=== PATIENT | female | born 1990 | race Asian ===

== ENCOUNTER 2020-01-29 13:22 | Inpatient (IN) ==
[2020-01-29] MEDS ORDERED: OXYTOCIN 30 UNITS/500 ML BAG IV PRN ×2 (14:30→19:53)
[2020-01-29 14:51] LABS: Hematocrit (blood only) 39.4 % (37-47); Hemoglobin 12.9 g/dL (12.0-16.0); Mean Corpuscular Hemoglobin 29.5 pg (25-34); Mean Platelet Volume 10.9 fL (7.4-10.4); Platelet Count 190 K/uL (130-400); RDW Coefficient of Variation 16.3 % (11.5-14.5); RDW Standard Deviation 53.8 fL (36.4-46.3); Red Blood Count 4.38 M/uL (4.2-5.4); White Blood Count 11.83 K/uL (4.8-10.8)
[2020-01-29 14:56] LABS: Mean Corpuscular Hgb Conc 32.7 g/dL (32-36)
--- NOTE | 2020-01-29 15:27 | History & Physical Report ---
Date of Service January 29, 2020 Assessment & Plan (1) Supervision of normal intrauterine in primigravida: 29 yo seen in the office after spontaneous rupture of membranes at home. Nitrazine test positive and fern testing positive, sent to L&D from office. 1) Spontaneous Rupture of Membranes at term - external heart rate monitoring - GBS negative - supportive care for cramping and contractions - spinal anesthesia per patient request (2) PROM (premature rupture of membranes): Patient was found to be ruptured in the office she will be admitted here I discussed the possibility of augmentation if she does not progress into labor by 6 to 8 hours at this time she would prefer to walk and ambulate and this seems reasonable she is group B strep negative negative so antibiotics are not indicated at this time and she is afebrile History of Present Illness Primary Care Provider: Diana Jimenez PA-C [id number] confirmed via LMP. Here for delivery after SROM at home and confirmation in office with +nitrazine test and ferning on microscopic exam of fluid. No complications with this . Has been attending OB appointments regularly. Currently taking supplement with iron and colace. Contractions: none. Fluid or Blood loss: SROM earlier today Movement: active Labs Blood type: O positive Antibody screen: negative H.9 Hct: 39.4 Wbc: 11.83 Plt:190 Rubella: immune VDRL/RPR:nonreactive Gonorrhea:negative Chlamydia:negative HIV: negative Hep Bs Ag: negative GBS:negative Glucose tolerance x2: negative Allergies Allergy/AdvReac Type Severity Reaction Status Date / Time No Known Drug Allergies Allergy Unknown Verified 01/29/20 17:54 Home Medications Home Medications Medication Instructions Recorded Confirmed Type breast pump #1 ea 01/22/20 01/29/20 Rx vit-iron fum-folic ac 1 tab PO DAILY 01/29/20 01/29/20 History [ Vitamin] Patient History Social History (Updated 06/22/19 @ 11:17 by Ashley Borja) Preferred Language: Turkish Communication Ability: Effective Manual Training Teacher Required: No Beliefs That Will Affect Care: None marital status: marital status details: Chelsie Mendosamadelyn (29) [phone] Current Living Situation: Spouse Current Living Situation Comment: lives with spouse current occupational status: unemployed Other Information That Helps Us Care for You: No Feels Safe at Home: Yes Safety Concerns: Feels Safe At This Time Smoking Status: Never smoker Hx Alcohol Use: No Hx Substance Use: No Review of Systems no fever, no chills and no fatigue no cough, no dyspnea and no wheezing no chest pain, no edema and no calf pain no abdominal pain, no nausea, no vomiting, no cramping, no constipation and no diarrhea/loose stools no dysuria and no difficulty urinating no back pain Physical Exam Constitutional: WD/WN, vitals as above well developed and well nourished Respiratory: normal respiratory effort, lungs clear to auscultation normal respiratory effort; no respiratory distress, no labored breathing and no cough Auscultation: no diminished lung sounds, no crackles, no rales, no rhonchi and no wheezes Cardiovascular: RRR, no murmur, no edema Rate/Rhythm: regular rate and regular rhythm Extremities: normal capillary refill; no calf tenderness, no pedal edema and no edema (2+ pitting edema BL to knees) Gastrointestinal (Abdomen): normal bowel sounds, soft, nontender, no hepatosplenomegaly Inspection/Auscultation: + abdomen distended and normal bowel sounds Percussion/Palpation: abdomen nontender and no guarding Genitourinary: Speculum/Bimanual Exam: + uterus enlarged OB Exam Abdomen: + fundal height Fundus: + firm and + relation to umbilicus (high above umbilicus); not tender Results & Data Vital Signs (Past 12 Hours) Vital Signs Temp Pulse Resp BP 01/29/20 13:37 37.0 C 20 01/29/20 13:34 91 H 109/71 Laboratory Results WBC 11.83 K/uL (4.8-10.8) H 01/29/20 14:44 RBC 4.38 M/uL (4.2-5.4) 01/29/20 14:44 Hgb 12.9 g/dL (12.0-16.0) 01/29/20 14:44 Hct 39.4 % (37-47) 01/29/20 14:44 MCV 90.0 fL (80-100) 01/29/20 14:44 MCH 29.5 pg (25-34) 01/29/20 14:44 MCHC 32.7 g/dL (32-36) 01/29/20 14:44 RDW Std Deviation 53.8 fL (36.4-46.3) H 01/29/20 14:44 RDW Coeff of Monica 16.3 % (11.5-14.5) H 01/29/20 14:44 Plt Count 190 K/uL (130-400) 01/29/20 14:44 MPV 10.9 fL (7.4-10.4) H 01/29/20 14:44 Monitoring External Monitor Walking around room; not currently on monitor. Tocodynamometer Contraction Frequency: no palpable contractions at this time. Resident Activity Tracking Resident Involvement: Resident Care Provided Care Provided: OB Delivery
--- NOTE | 2020-01-29 15:49 | History & Physical Report ---
Date of Service January 29, 2020 Assessment & Plan (1) PROM (premature rupture of membranes): Patient was found to be ruptured in the office she will be admitted here I discussed the possibility of augmentation if she does not progress into labor by 6 to 8 hours at this time she would prefer to walk and ambulate and this seems reasonable she is group B strep negative negative so antibiotics are not indicated at this time and she is afebrile Admission and Anticipated Discharge Date Admission Date: January 29, 2020 History of Present Illness Primary Care Provider: Diana Jimenez PA-C Patient admitted with spontaneous rupture of membranes she was assessed in the office and found to be ruptured. At this stage she is starting to have some contraction activity which is increased she is clearly not in labor yet her cervix was 1 cm in the office is uncomplicated she is group B strep negative this is her first baby Allergies Allergy/AdvReac Type Severity Reaction Status Date / Time No Known Drug Allergies Allergy Verified 01/29/20 12:38 Home Medications Home Medications Medication Instructions Recorded Confirmed Type PNV cmb#95-ferrous fumarate-FA 1 tab PO DAILY 11/04/18 01/29/20 History [ Multivitamins] calcium PO 07/13/19 01/29/20 History calcium carbonate PO 07/13/19 01/29/20 History doxylamine succinate PO 08/20/19 01/29/20 History pyridoxine (vitamin B6) PO 08/20/19 01/29/20 History docusate sodium PO 12/17/19 01/29/20 History ferrous sulfate PO 12/17/19 01/29/20 History breast pump #1 ea 01/22/20 01/29/20 Rx Patient History Medical History (Updated 01/29/20 @ 15:48 by Nadia Forbes MD, FACOG) Hx of migraines Hx of one miscarriage Hx of varicella Miscarriage within last 12 months Family History (Updated 06/22/19 @ 12:02 by Ashley Borja) Brother Heart defect Grandmother (Maternal) Diabetes Mother Hypertension Dyslipidemia Hepatitis Thyroid disease Aunt Breast cancer Other Family history non-contributory Social History (Updated 06/22/19 @ 11:17 by Ashley Borja) Preferred Language: Guatemalan Communication Ability: Effective Container Finisher Required: No Beliefs That Will Affect Care: None marital status: marital status details: Chelsie Krishnan (27) [phone] Current Living Situation: Spouse Current Living Situation Comment: lives with spouse current occupational status: unemployed Other Information That Helps Us Care for You: No Feels Safe at Home: Yes Safety Concerns: Feels Safe At This Time Smoking Status: Never smoker Hx Alcohol Use: No Hx Substance Use: No Physical Exam Constitutional: WD/WN, vitals as above Respiratory: normal respiratory effort, lungs clear to auscultation Cardiovascular: RRR, no murmur, no edema Gastrointestinal (Abdomen): normal bowel sounds, soft, nontender, no hepatosplenomegaly Results & Data ([facility]) Vital Signs (Past 12 Hours) Vital Signs Temp Pulse Resp BP 01/29/20 13:37 98.6 F 20 01/29/20 13:34 91 H 109/71 Coding Level of Care Code None Diagnoses PROM (premature rupture of membranes) O42.90
--- NOTE | 2020-01-29 18:12 | Labor Progress Brief Note ---
Date of Service January 29, 2020 Patient started to contract more on her own at this stage heart rate tracing is category 1 contractions about every 3 minutes apart and we feel more intense to her I discussed the role of Pitocin may still be needed at this time she prefers to walk the hallways and I think this is reasonable I will avoid cervical check at this time to reduce chance of infection she is group B strep negative we discussed the role of Pitocin if things do not progress later in the evening Assessment & Plan Admission and Anticipated Discharge Date Admission Date: January 29, 2020 Results & Data ([facility]) Vital Signs (Past 12 Hours) Vital Signs Temp Pulse Resp BP 01/29/20 16:31 76 97/54 L 01/29/20 13:37 98.6 F 20 01/29/20 13:34 91 H 109/71 Coding Level of Care Code None
--- NOTE | 2020-01-29 19:52 | Labor Progress Brief Note ---
Date of Service January 29, 2020 Patient's contractions have now backed away she is 9 hours from rupture of membranes she accepts Pitocin she did previously want to walk around at this stage she realizes her contractions are not strong enough estimated weight 7 pounds heart rate category 1 Assessment & Plan Admission and Anticipated Discharge Date Admission Date: January 29, 2020 Results & Data ([facility]) Vital Signs (Past 12 Hours) Vital Signs Temp Pulse Resp BP 01/29/20 19:20 98.4 F 78 18 110/66 01/29/20 16:31 98.1 F 76 20 97/54 L 01/29/20 13:37 98.6 F 20 01/29/20 13:34 91 H 109/71 Coding Level of Care Code None
[2020-01-29] MEDS: LACTATED RINGER'S 1,000 ML IV PRN ×2 (19:58→23:35)
[2020-01-29] MEDS ORDERED: fentaNYL citrate 100 MCG/2 ML VIAL ONE (23:21)
[2020-01-29] MEDS ORDERED: BUPIVACAINE 0.25% 30 ML VIAL ONE (23:21)
[2020-01-29] MEDS ORDERED: ePHEDrine sulfate 50 MG/ML AMP ONE (23:21)
[2020-01-29] MEDS ORDERED: fentaNYL 2MCG/ML ROPIV 1.25MG/ML 100 ML BAG EPI ONE (23:22)
--- NOTE | 2020-01-29 23:30 | Anesthesiology Consultation ---
Date of Service January 29, 2020 Assessment & Plan (1) Encounter for pre-operative examination: Chart Review Chart Review: Acceptable Risk for Surgery Consults Requested none ASA ASA2 Proposed Anesthesia Anesthesia Type: Labor Epidural Risk / Benefits Reviewed With: PT / POA / Parent / Guardian, Accepts Plan and Informed Consent Obtained History Height/Weight Height: 5 ft 3.78 in Weight: 65.771 kg Allergies Allergy/AdvReac Type Severity Reaction Status Date / Time No Known Drug Allergies Allergy Unknown Verified 01/29/20 17:54 Medications Home Medications Medication Instructions Recorded Confirmed Last Taken breast pump #1 ea 01/22/20 01/29/20 Unknown vit-iron fum-folic ac 1 tab PO DAILY 01/29/20 01/29/20 01/29/20 07:00 [ Vitamin] Active Medications Generic Name Dose Route Start Last Admin Trade Name Freq PRN Reason Stop Dose Admin Lactated Ringer's 1,000 mls @ 125 mls/hr 01/29/20 14:30 01/29/20 23:30 Lr IV 01/31/20 14:29 999 mls/hr .Q8H PRN Infusion L&D Protocol Protocol Oxytocin 30 units in 500 mls @ 5 mls/hr 01/29/20 19:53 01/29/20 23:00 Pitocin IV 01/31/20 19:52 0.3 units/hr .Q24H PRN 5 mls/hr Labor Induction/Augmentation Titration Protocol 0.3 UNITS/HR Past Medical History Medical History Hx of migraines Hx of one miscarriage Hx of varicella Miscarriage within last 12 months Exercise / Class Metabolic Activity II 4-5 Yardwork/Stairs/Walk up hill Past Family History Family History Brother Heart defect Grandmother (Maternal) Diabetes Mother Hypertension Dyslipidemia Hepatitis Thyroid disease Aunt Breast cancer Other Family history non-contributory Past Anesthesia History No Hx of Anesthesia Complications and No Family Hx of Anesthesia Complications History of PONV No Hx of PONV and No Hx of Motion Sickness Social History Smoking Status: Never smoker Hx Alcohol Use: No Hx Substance Use: No Physical Exam Vital Signs Last Vital Signs Temp 98.2 F 01/29/20 23:00 Pulse 73 01/29/20 23:24 Resp 20 01/29/20 23:00 BP 111/73 01/29/20 23:11 Pulse Ox 100 01/29/20 23:24 ENMT Mouth: no dentition abnormality Thyromental Distance: > or= 3.5 Finger Breadths Mallampati Class: II Neck normal visual inspection Respiratory normal respiratory effort Auscultation: lungs clear to auscultation bilaterally Cardiovascular Rate/Rhythm: regular rate and regular rhythm Testing Laboratory Results 01/29/20 14:44
[2020-01-29] MEDS ORDERED: DiphenhydrAMINE HCL 50 MG/ML VIAL IV PRN (23:53)
[2020-01-29] MEDS ORDERED: NALOXONE HCL 0.4 MG/1 ML VIAL/CARP IV PRN (23:53)
[2020-01-29] MEDS ORDERED: fentaNYL 2MCG/ML ROPIV 1.25MG/ML 100 ML BAG EPI PRN (23:53)
[2020-01-29] MEDS ORDERED: NALBUPHINE HCL INJ 10 MG/ML AMP IV PRN (23:53)
[2020-01-29] MEDS ORDERED: NALOXONE HCL 1 MG in SODIUM CHLORIDE 0.9% 1000ML 1,000 ML IV PRN (23:53)
[2020-01-29] MEDS ORDERED: ONDANSETRON INJ 2 MG/ML 2 ML VIAL IV PRN (23:53)
[2020-01-29] MEDS ORDERED: ePHEDrine sulfate 50 MG/ML AMP IV PRN (23:53)
[2020-01-30] MEDS ORDERED: Nursing to Pharmacy Communication SCH (05:45)
--- NOTE | 2020-01-30 06:09 | Labor Progress Brief Note ---
Date of Service January 30, 2020 Patient having some decelerations however she is now fully dilated +1 and will start pushing Assessment & Plan Admission and Anticipated Discharge Date Admission Date: January 29, 2020 Results & Data ([facility]) Vital Signs (Past 12 Hours) Vital Signs Temp Pulse Resp BP Pulse Ox 01/30/20 06:04 86 98 01/30/20 06:01 80 112/76 01/30/20 06:00 20 01/30/20 05:59 78 97 01/30/20 05:54 74 99 01/30/20 05:49 82 99 01/30/20 05:45 83 111/71 01/30/20 05:44 79 100 01/30/20 05:39 80 99 01/30/20 05:34 80 99 01/30/20 05:30 82 20 104/67 01/30/20 05:29 82 98 01/30/20 05:24 82 98 01/30/20 05:19 88 98 01/30/20 05:15 79 112/73 01/30/20 05:14 85 99 01/30/20 05:09 79 99 01/30/20 05:04 81 99 01/30/20 05:02 80 116/73 01/30/20 05:00 98.6 F 20 01/30/20 04:59 78 99 01/30/20 04:54 92 H 98 01/30/20 04:49 73 99 01/30/20 04:46 81 109/66 01/30/20 04:44 96 H 98 01/30/20 04:39 75 99 01/30/20 04:34 80 99 01/30/20 04:31 78 101/54 L 01/30/20 04:30 18 01/30/20 04:29 80 99 01/30/20 04:24 76 96 01/30/20 04:19 74 97 01/30/20 04:16 75 105/56 L 01/30/20 04:14 73 98 01/30/20 04:09 76 98 01/30/20 04:04 76 98 01/30/20 04:02 75 102/65 01/30/20 03:59 85 97 01/30/20 03:54 80 97 01/30/20 03:49 74 98 01/30/20 03:46 85 109/66 01/30/20 03:44 78 98 01/30/20 03:39 78 97 01/30/20 03:34 76 97 01/30/20 03:31 79 101/57 L 01/30/20 03:30 18 01/30/20 03:29 82 98 01/30/20 03:24 80 96 01/30/20 03:19 82 96 01/30/20 03:17 81 93/55 L 01/30/20 03:14 93 H 96 01/30/20 03:09 80 97 01/30/20 03:04 81 97 01/30/20 03:00 78 18 93/54 L 01/30/20 02:59 77 98 01/30/20 02:54 80 100 01/30/20 02:49 86 98 01/30/20 02:46 74 94/54 L 01/30/20 02:44 73 99 01/30/20 02:39 81 100 01/30/20 02:34 82 99 01/30/20 02:32 80 95/57 L 01/30/20 02:30 98.6 F 18 01/30/20 02:29 90 99 01/30/20 02:24 79 98 01/30/20 02:19 76 98 01/30/20 02:15 73 102/63 01/30/20 02:14 68 97 01/30/20 02:09 75 98 01/30/20 02:04 76 98 01/30/20 02:00 67 18 102/63 01/30/20 01:59 69 97 01/30/20 01:54 77 99 01/30/20 01:49 85 98 01/30/20 01:47 71 93/50 L 01/30/20 01:44 74 99 01/30/20 01:39 73 99 01/30/20 01:34 69 100 01/30/20 01:30 73 18 91/52 L 01/30/20 01:29 78 99 01/30/20 01:24 75 99 01/30/20 01:19 80 98 01/30/20 01:15 78 93/55 L 01/30/20 01:14 72 99 01/30/20 01:09 84 97 01/30/20 01:06 71 102/66 01/30/20 01:04 73 96 01/30/20 01:00 18 01/30/20 00:59 74 96 01/30/20 00:56 76 107/65 01/30/20 00:54 71 96 01/30/20 00:49 74 96 01/30/20 00:46 78 109/72 01/30/20 00:44 71 97 01/30/20 00:39 73 97 01/30/20 00:36 81 111/72 01/30/20 00:34 72 97 01/30/20 00:30 98.4 F 18 01/30/20 00:29 75 96 01/30/20 00:26 71 101/63 01/30/20 00:24 74 97 01/30/20 00:19 78 97 01/30/20 00:17 80 102/62 01/30/20 00:14 82 97 01/30/20 00:09 73 98 01/30/20 00:06 70 103/65 01/30/20 00:04 89 108/68 97 01/30/20 00:02 82 95/55 L 01/30/20 00:00 76 20 88/54 L 01/29/20 23:59 80 97 01/29/20 23:58 84 92/55 L 01/29/20 23:56 82 95/52 L 01/29/20 23:54 83 92/50 L 96 01/29/20 23:52 81 100/50 L 01/29/20 23:50 77 110/65 01/29/20 23:49 72 99 01/29/20 23:48 71 115/67 01/29/20 23:46 78 112/64 01/29/20 23:44 74 97 01/29/20 23:39 95 H 98 01/29/20 23:36 90 114/63 01/29/20 23:34 82 97 01/29/20 23:29 76 99 01/29/20 23:24 73 100 01/29/20 23:11 71 111/73 01/29/20 23:00 98.2 F 20 01/29/20 22:11 78 111/72 01/29/20 22:05 18 01/29/20 21:11 72 109/67 01/29/20 21:05 98.6 F 18 01/29/20 20:09 77 106/64 01/29/20 19:20 98.4 F 78 18 110/66 Coding Level of Care Code None
[2020-01-30] MEDS ORDERED: OXYTOCIN 30 UNITS/500 ML BAG IV PRN (07:09)
[2020-01-30] MEDS ORDERED: HYDROCORTISONE ACETATE 25 MG SUPP PR PRN (07:09)
[2020-01-30] MEDS ORDERED: BENZOCAINE 20% AER SPR 82.5 GM CAN EXT PRN (07:09)
[2020-01-30] MEDS ORDERED: SUPERCREAM 0.870% 15 GM JAR EXT PRN (07:09)
[2020-01-30] MEDS ORDERED: DIPHTHERIA/TETANUS/PERTUSSIS 0.5 ML SYR/VIAL IM ONE (07:09)
--- NOTE | 2020-01-30 07:11 | Delivery Summary ---
Vaginal Delivery Summary Date of Service January 30, 2020 Spontaneous vaginal delivery patient had an epidural pushed for a relatively short period of time in right occiput anterior position mouth and then nares were suctioned there was no nuchal cord gentle traction fluid was clear live vigorous female cord gases obtained cord blood obtained placenta removed with gentle traction IV Pitocin started 3-0 Vicryl used to repair the small second-degree tear bleeding improved sponge and instrument counts were correct estimated blood loss 250
[2020-01-30] MEDS ORDERED: LACTATED RINGER'S 1,000 ML IV SCH (07:15)
[2020-01-30 07:33] LABS: Base Excess Cord Venous Blood 1.2 mEq/L (-7.7-1.9); Cord Venous Blood HCO3 26 mmol/L (18.4-26.8); Cord Venous Blood PCO2 42 mmHg (30.4-57.2); Cord Venous Blood PO2 28 mmHg (14.1-43.3); Cord Venous Blood pH 7.41 (7.20-7.44)
[2020-01-30 07:34] LABS: Base Excess Cord Arterial Bld -0.1 mEq/L (-9-1.8); CO2 Cord Arterial Blood 54 mmHg (39.1-73.5); HCO3 Cord Arterial Blood 27 mmol/L (19.7-28.5); PO2 Cord Arterial Blood 18 mmHg (4.1-31.7); pH Cord Arterial Blood 7.32 (7.1-7.38)
[2020-01-30 07:38] LABS: Oxygen Sat Cord Arterial Blood < 60.0 % (<60)
[2020-01-30] MEDS ORDERED: NON-FORMULARY MEDICATION (Prenatal Vit-Iron Fum-Folic Ac [Prenatal Vitamin] 1 TAB) PO SCH (09:00)
--- NOTE | 2020-01-30 09:08 | Anesthesia Procedure Note ---
Date of Service January 30, 2020 Anesthesia Post Epidural Note Vital Signs Vital Signs: Temp Pulse Resp BP Pulse Ox 37.7 C H 96 H 20 106/58 L 95 01/30/20 06:29 01/30/20 08:55 01/30/20 08:40 01/30/20 08:55 01/30/20 07:09 Pain Intensity Bilateral Abdomen: Pain Intensity: 1 Notes Mental Status: alert / awake / arousable and participated in evaluation Nausea / Vomiting: adequately controlled Pain: adequately controlled Airway Patency, RR, SpO2: stable & adequate BP & HR: stable & adequate Hydration State: stable & adequate Neuraxial Anesthesia: was administered and sensory block is resolving Anesthetic Complications: no major complications apparent and Pt Satisfied with anesthetic care Epidural: Removed without complications and With tip intact
[2020-01-30] MEDS: IBUPROFEN 600 MG TAB PO PRN ×2 (09:48→18:55)
[2020-01-30] MEDS: ACETAMINOPHEN 325 MG TAB PO PRN (19:39)
[2020-01-30] MEDS: DOCUSATE SODIUM 100 MG CAP PO SCH (20:25)
[2020-01-31] MEDS: ACETAMINOPHEN 325 MG TAB PO PRN ×3 (01:13→20:13)
[2020-01-31] MEDS: IBUPROFEN 600 MG TAB PO PRN ×2 (01:13→08:00)
--- NOTE | 2020-01-31 07:47 | Obstetrical Progress Note ---
Date of Service January 31, 2020 Assessment & Plan (1) exam: stable, routine care. f/u 6 wks pp check. instructions reviewed. Day #:: 1 Subjective Ambulation: ambulating normally Voiding: no voiding problems Diet Tolerance:: regular diet Lochia:: Small Feeding Type:: breast feeding asked questions about her pain meds. no pain control issues. Physical Exam Constitutional WD/WN, vitals as above Respiratory normal respiratory effort, lungs clear to auscultation Cardiovascular Rate/Rhythm: regular rate and regular rhythm Gastrointestinal (Abdomen) Inspection/Auscultation: abdomen normal to inspection Percussion/Palpation: abdomen soft Fundus firm 2cm down Musculoskeletal nt calves no edema Neurologic grossly normal Psychiatric A+Ox3, euthymic affect Results & Data ([facility]) Vital Signs (Past 12 Hours) Vital Signs Temp Pulse Resp BP 01/31/20 04:00 97.9 F 70 18 109/67 01/31/20 00:00 97.3 F L 75 18 104/70
[2020-01-31] MEDS: PRENATAL VITAMIN 1 TAB PO SCH (07:59)
[2020-01-31] MEDS: DOCUSATE SODIUM 100 MG CAP PO SCH ×2 (08:00→20:11)
[2020-01-31 08:07] LABS: Hematocrit (blood only) 36.1 % (37-47); Hemoglobin 11.7 g/dL (12.0-16.0); Mean Corpuscular Hemoglobin 29.8 pg (25-34); Mean Corpuscular Hgb Conc 32.4 g/dL (32-36); Mean Corpuscular Volume 92.1 fL (80-100); Mean Platelet Volume 10.3 fL (7.4-10.4); Platelet Count 165 K/uL (130-400); RDW Coefficient of Variation 17.1 % (11.5-14.5); RDW Standard Deviation 57.4 fL (36.4-46.3); Red Blood Count 3.92 M/uL (4.2-5.4); White Blood Count 11.96 K/uL (4.8-10.8)
[2020-01-31] MEDS ORDERED: bisacodyL 5 MG TABEC PO SCH (20:00)
[2020-02-01 06:28] LABS: Hematocrit (blood only) 36.5 % (37-47)
[2020-02-01] MEDS: DOCUSATE SODIUM 100 MG CAP PO SCH (08:30)
[2020-02-01] MEDS: PRENATAL VITAMIN 1 TAB PO SCH (08:32)
[2020-02-01] MEDS: IBUPROFEN 600 MG TAB PO PRN (08:32)
[2020-02-01] MEDS ORDERED: bisacodyL 10 MG SUPP PR PRN (09:00)
== END 2020-02-01 18:45 | disposition home or self-care (01) | DRG 807 ==
LOC: 4S1 13:22 → 4S2 01-30 11:49